=== PATIENT | female | born 1950 | race Caucasian/White ===

== ENCOUNTER 2021-07-13 09:47 | Emergency (ER) | payer MEDICAID ==
[~2021-07-13] VITALS: Ht 167.6 cm; Wt 63.5 kg
[2021-07-13] MEDS ORDERED: predniSONE 20 MG TABLET ONE (11:05)
[2021-07-13] MEDS ORDERED: FAMOTIDINE (20 MG) 20 MG TABLET ONE (11:06)
[2021-07-13] MEDS ORDERED: diphenhydrAMINE HCL 25 MG CAPSULE ONE (11:06)
[2021-07-13] MEDS: diphenhydrAMINE HCL ELIX 25 MG/10 ML UDC PO ONE (11:11)
[2021-07-13] MEDS: predniSONE 20 MG TABLET PO ONE (11:11)
[2021-07-13] MEDS: FAMOTIDINE (20 MG) 20 MG TABLET PO ONE (11:11)
[2021-07-13 11:56] LABS: BILIRUBIN,URINE NEGATIVE (NEGATIVE); COLOR,URINE YELLOW (YELLOW); LEUKOCYTE ESTERASE ,URINE MODERATE (NEGATIVE); NITRITE, URINE POSITIVE (NEGATIVE); PH,URINE 6.5 (5.0-8.0); PROTEIN,URINE NEGATIVE (NEGATIVE); UGLUCOSE NEGATIVE (NEGATIVE); UROBILINOGEN,URINE 0.2 EU/dL (0.2)
[2021-07-13 12:38] LABS: BACTERIA,URINE Few /HPF (None Seen); RBC,URINE 0-2 /HPF (0-2); SQUAMOUS EPITHELIAL CELL,UR Moderate /HPF (None Seen)
[2021-07-13] MEDS ORDERED: CEPH500T PO (12:55)
[2021-07-13] MEDS ORDERED: CETI-90 PO (13:04)
[2021-07-13] MEDS ORDERED: FAMO-131 PO (13:04)
[2021-07-13 14:10] VITALS: BP 131/75
== END 2021-07-13 14:10 | disposition home or self-care (01) ==
LOC: ER 09:51
DX: N39.0 Urinary tract infection, site not specified (principal); T78.40XA Allergy, unspecified, initial encounter; T36.8X5A Adverse effect of other systemic antibiotics, initial encounter; Z79.899 Other long term (current) drug therapy; Y92.89 Other specified places as the place of occurrence of the external cause
CPT/HCPCS: 81001; 87077; 87086; 87186; 99284; J7512; Q0163

== ENCOUNTER 2023-11-11 09:07 | Emergency (ER) | payer MEDICAID, OTHER ==
[~2023-11-11] VITALS: Ht 167.6 cm; Wt 62.6 kg
[~2023-11-11 09:07] MED LIST: CEPH500T PO; CETI-90 PO; FAMO-131 PO
[2023-11-11] MEDS ORDERED: BENZ-13 PO (10:52)
[2023-11-11] MEDS ORDERED: IBUP-1953 PO (10:52)
[2023-11-11 11:02] VITALS: BP 138/70; TEMP 97.7; O2SAT 100
== END 2023-11-11 11:02 | disposition home or self-care (01) ==
LOC: ER 09:18
DX: J06.9 Acute upper respiratory infection, unspecified (principal); R05.9 Cough, unspecified; R10.816 Epigastric abdominal tenderness; Z20.822 Contact with and (suspected) exposure to COVID-19
CPT/HCPCS: 71045-TC